=== PATIENT | female | born 1965 | race Caucasian/White ===

== ENCOUNTER 2017-01-24 13:45 | Emergency (ER) | payer MEDICARE, MEDICAID ==
--- NOTE | 2017-01-24 20:13 | ER Document Report ---
ED Syncope and Near Syncope - General Time Seen by Provider: 01/24/17 20:09 Notes: The patient is a 51-year-old female that comes emergency room for chief complaint of near syncopal episode. Patient states that she was getting out of a car earlier today when she felt suddenly lightheaded, she states her vision blurred, she states she fell forward and hit her head near the back right side on the ground. She states she did not pass out and she remembers lying on the ground when everyone huddled over her and asking her if she is okay. She denies chest pain, shortness of breath, fever, vomiting. She states she had a headache earlier but this has resolved. She is not on a blood thinner other than a baby aspirin daily. She states her blood pressures have been running low , states she had her amlodipine taken back from 10-5 mg, is still on Lasix 20 mg for swelling of the lower extremities which she has not had in a very long time and also is on lisinopril 30 mg daily. Past medical history of insulin- dependent diabetes, hypertension, stage IV chronic kidney disease. Past Medical History - General Information source: Patient - Social History Smoking Status: Never Smoker Frequency of alcohol use: None Drug Abuse: None Lives with: Family Family History: Reviewed & Not Pertinent - Past Medical History Cardiac Medical History: Reports: Hx Hypertension Endocrine Medical History: Reports: Hx Diabetes Mellitus Type 2 Renal/ Medical History: Reports: Other - Chronic kidney disease - Immunizations Immunizations up to date: Yes Hx Diphtheria, Pertussis, Tetanus Vaccination: Yes Review of Systems - Review of Systems Constitutional: No symptoms reported EENT: No symptoms reported Cardiovascular: See HPI Respiratory: No symptoms reported Gastrointestinal: No symptoms reported Genitourinary: No symptoms reported Female Genitourinary: No symptoms reported Musculoskeletal: See HPI Skin: No symptoms reported Hematologic/Lymphatic: No symptoms reported Neurological/Psychological: See HPI Physical Exam - Vital signs Interpretation: Normal - General General appearance: Appears well, Alert In distress: None - Patient alert and well appearing - HEENT Head: Normocephalic, Atraumatic. No: Ecchymosis, Open wounds, Tenderness Eyes: Normal Conjunctiva: Normal Extraocular movements intact: Yes Eyelashes: Normal Pupils: PERRL Sinus: Normal Nasal: Normal Mouth/Lips: Normal Mucous membranes: Normal Pharynx: Normal Neck: Normal - Respiratory Respiratory status: No respiratory distress Chest status: Nontender Breath sounds: Normal Chest palpation: Normal - Cardiovascular Rhythm: Regular Heart sounds: Normal auscultation Murmur: No - Abdominal Inspection: Normal Distension: No distension Bowel sounds: Normal Tenderness: Nontender. No: Tender, Guarding Organomegaly: No organomegaly - Back Back: Normal, Nontender - Extremities General upper extremity: Normal inspection, Nontender, Normal color, Normal ROM , Normal temperature General lower extremity: Normal inspection, Nontender, Normal color, Normal ROM , Normal temperature, Normal weight bearing. No: Jenni's sign - Neurological Neuro grossly intact: Yes Cognition: Normal Orientation: AAOx4 Jann Coma Scale Eye Opening: Spontaneous [place] Coma Scale Verbal: Oriented Jann Coma Scale Motor: Obeys Commands Jann Coma Scale Total: 15 Speech: Normal Cranial nerves: Normal Cerebellar coordination: Normal Motor strength normal: LUE, RUE, LLE, RLE Additional motor exam normals: Equal extermination inspector Sensory: Normal - Psychological Associated symptoms: Normal affect, Normal mood - Skin Skin Temperature: Warm Skin Moisture: Dry Skin Color: Normal Course - Re-evaluation Re-evalutation: Workup shows creatinine at 2.5+, S patient and she believes this is stable for her chronic kidney disease. Remaining workup unremarkable including no signs of infection, anemia, enzyme/rheumatoid abnormality, or any other acute findings. EKG shows sinus rhythm with no ischemic abnormalities or arrhythmias. Patient is alert, well-appearing, conversational, has a normal neurological exam. Patient also has no signs of injury over her hand. Patient almost passed out but did not completely pass out, no vomiting, no confusion, no indication for scanning her head at this time. Patient is asking to leave. Patient states she has been monitoring her blood pressures and found that her blood pressures are dropping well, at times 80s systolic. She states that she has gotten healthy recently and her primary care already recently cut her amlodipine dose in half. Patient takes Lasix for intermittent lower extremity swelling, has not had this in a very long time per patient. No history of CHF reported. Also on lisinopril. Recommended stopping Lasix, checking blood pressures, following up closely with her primary for additional management, discussed return precautions, discussed head injury precautions and vasovagal syncope, patient going home with her family, patient states satisfaction in agreement. - Laboratory Result Diagrams: 01/24/17 14:50 01/24/17 14:50 Discharge - Discharge Clinical Impression: Near syncope Head injury Qualifiers: Encounter type: initial encounter Qualified Code(s): S09.90XA - Unspecified injury of head, initial encounter Condition: Stable Disposition: HOME, SELF-CARE Additional Instructions: Workup shows no acute abnormalities. Examination and symptoms are consistent with vasovagal syncope. I recommend holding your Lasix check blood pressures daily, follow up closely with your primary care provider for additional evaluation and management. Avoid fast position changes. Return immediately for any concerning symptoms, see additional instructions on head injuries below. Head Injury Precautions At this point, there is no evidence that your head injury is serious. Observation is necessary, however. Take only clear liquids for the first few hours, unless told otherwise by the doctor. If no pain medication was prescribed, you may take acetaminophen according to the directions on the bottle. Do not take any medication that may alter your level of alertness (unless you've discussed it with the doctor first) . Limit activity for the first 24 hours. Bed rest is best. During the first 24 hours, check to see approximately every two to three hours that the patient is easily arousable, responds normally, and can perform common tasks such as walking without difficulty. Contact your doctor or go to the hospital if any of the following things occur: Persistent vomiting, difficulty in arousing the patient, worsening or continued headache, or failure to improve as expected. Head injuries can cause symptoms that persist for a few days or even a few weeks. Vasovagal Symptoms Your symptoms seem to be due to a fall in blood pressure, caused by the interaction of your nervous system with your circulatory system. This can result in abnormally slow pulse rate, faintness, abnormal sensations, low blood pressure, difficulty with vision, or fainting (syncope). Vasovagal symptoms may be brought on by emotional distress, pain, dehydration, bleeding, or medication effects. Often, no cause can be identified. Your exam has revealed no signs of a serious problem. Usually, no further tests are required. However, if further workup has been recommended it's important that you follow up as instructed. Should you feel lightheaded or "about to faint," you should sit or lie down as quickly as possible. The episode will usually pass. Recurring symptoms will require further evaluation to determine the cause. Call the physician if you develop severe prolonged dizziness, headache, chest pain, shortness of breath, or other new symptoms.
[2017-01-25 09:06] LABS: ABSOLUTE EOSINOPHILS # (AUTO) 0.3 10^3/uL (0.0-0.6); ABSOLUTE LYMPHOCYTES (AUTO) 2.2 10^3/uL (0.5-4.7); ABSOLUTE MONOCYTES (AUTO) 0.4 10^3/uL (0.1-1.4); ABSOLUTE NEUT (AUTO) 4.9 10^3/uL (1.7-8.2); BASOPHILS % (AUTO) 0.5 % (0-2); EOSINOPHILS % (AUTO) 3.8 % (0-6); HEMATOCRIT 34.3 % (36.0-47.0); HEMOGLOBIN 11.2 g/dL (12.0-15.5); HGB HCT DIFFERENCE -0.7; LYMPHOCYTES % (AUTO) 27.6 % (13-45); MEAN CORPUSCULAR HEMOGLOBIN 30.8 pg (27.0-33.4); MEAN CORPUSCULAR HGB CONC 32.8 g/dL (32.0-36.0); MEAN CORPUSCULAR VOLUME 94 fl (80-97); RED BLOOD COUNT 3.65 10^6/uL (3.72-5.28); RED CELL DISTRIBUTION WIDTH 13.7 % (11.5-14.0); SEGMENTED NEUTROPHILS % (AUTO) 63.1 % (42-78); WHITE BLOOD COUNT 7.8 10^3/uL (4.0-10.5)
--- NOTE | 2017-01-25 10:35 | EKG REPORT ---
SEVERITY:- NORMAL ECG - SINUS RHYTHM : Confirmed by: Ev Thapa MD 25-Jan-2017 10:34:56
[2017-01-25 15:21] LABS: BLOOD UREA NITROGEN 53 mg/dL (7-20); CHLORIDE 99 mmol/L (98-107); CREATININE RESULT 2.53 mg/dL (0.52-1.25); GLUCOSE 187 mg/dL (75-110); POTASSIUM 4.4 mmol/L (3.6-5.0)
[2017-01-25 15:22] LABS: ALBUMIN 4.1 g/dL (3.5-5.0); ANION GAP 13 (5-19); CARBON DIOXIDE 26 mmol/L (22-30); SODIUM 138.2 mmol/L (137-145)
[2017-01-25 15:23] LABS: ALANINE AMINOTRANSFERASE 32 U/L (9-52); ALKALINE PHOSPHATASE 105 U/L (38-126); ASPARTATE AMINO TRANSFERASE 25 U/L (14-36); BILIRUBIN,DIRECT 0.4 mg/dL (0.0-0.4); BILIRUBIN,TOTAL 0.4 mg/dL (0.2-1.3); TOTAL PROTEIN 6.8 g/dL (6.3-8.2)
[2017-01-25 15:25] LABS: CREATINE KINASE MB 1.27 ng/mL (<4.55); TROPONIN I < 0.012 ng/mL
== END 2017-01-24 20:41 | disposition home or self-care (01) ==
LOC: ER 13:45
DX: S09.90XA Unspecified injury of head, initial encounter (principal); R55 Syncope and collapse; H53.8 Other visual disturbances; W17.89XA Other fall from one level to another, initial encounter; Z79.82 Long term (current) use of aspirin; E11.22 Type 2 diabetes mellitus with diabetic chronic kidney disease; I12.9 Hypertensive chronic kidney disease with stage 1 through stage 4 chronic kidney disease, or unspecified chronic kidney disease; N18.9 Chronic kidney disease, unspecified
CPT/HCPCS: 36415; 80053; 82553; 84484; 85025; 93005; 93010; 99284